=== PATIENT | female | born 1945 | race Caucasian/White ===

== ENCOUNTER 2021-06-10 18:02 | Inpatient (IN) | payer MEDICARE, MEDICAID, SELFPAY ==
[2021-06-10 18:07] VITALS: BP 131/82; PULSE 82; RESP 29; TEMP 36.4; BMI 16.6
--- NOTE | 2021-06-10 18:09 | CTR_ITS ---
PROCEDURE INFORMATION: Exam: CT Head Without Contrast Exam date and time: 06/10/2021 6:09 PM Age: 75 years old Clinical indication: Altered mental status/memory loss; Additional info: AMS TECHNIQUE: Imaging protocol: Computed tomography of the head without contrast. Radiation optimization: All CT scans at this facility use at least one of these dose optimization techniques: automated exposure control; mA and/or kV adjustment per patient size (includes targeted exams where dose is matched to clinical indication); or iterative reconstruction. COMPARISON: No relevant prior studies available. 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 Small posterior left insular chronic infarction is also seen. Mild atrophy and mild white matter chronic microvascular changes are noted. No hemorrhage or evidence of acute infarction. Cerebral ventricles: No ventriculomegaly. Paranasal sinuses: Right sphenoid sinusitis is appreciated. Mastoid air cells: Visualized mastoid air cells are well aerated. Bones/joints: Unremarkable. No acute fracture. Soft tissues: Unremarkable. CT/CT head wo con* [id number] IMPRESSION: No acute intracranial abnormality. Mild sinusitis. Radiation Dose CTDIVOL = (mGy): DLP = 865.02 (mGy-cm)
--- NOTE | 2021-06-10 18:09 | XRR_ITS ---
PROCEDURE INFORMATION: Exam: XR Chest Exam date and time: 06/10/2021 6:09 PM Age: 75 years old Clinical indication: Fever TECHNIQUE: Imaging protocol: XR of the chest. Views: 1 view. COMPARISON: No relevant prior studies available. FINDINGS: Lungs: Emphysematous changes. Lingular left lower lobe atelectasis versus infiltrate. Pleural spaces: Moderate left pleural effusion. Heart/Mediastinum: Cardiomegaly. Bones/joints: Unremarkable. XR/XR chest 1V portable [id number] IMPRESSION: 1. Cardiomegaly. 2. Moderate left pleural effusion. 3. Emphysematous changes. 4. Lingular left lower lobe atelectasis versus infiltrate. Radiation Dose CTDIVOL = (mGy): DLP = (mGy-cm)
--- NOTE | 2021-06-10 18:09 | ECG_ITS ---
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 Measurements Intervals Marshall Rate: 96 P: 63 MI: 138 QRS: 1 QRSD: 78 T: 12 QT: 318 QTc: 403 Interpretive Statements SINUS RHYTHM WITH FREQUENT VENTRICULAR PREMATURE COMPLEXES NONSPECIFIC T-WAVE ABNORMALITY No previous ECG available for comparison Electronically Signed On 06-11-2021 9:59:07 [employer] by Osiris Morales M.D. [email or web address]
--- NOTE | 2021-06-10 18:16 | W.ED.AMS ---
HPI - Altered Mental Status General: Chief Complaint: Urogenital-Female Stated Complaint: POSSIBLE UTI/ SOB Time Seen by Provider: 06/10/21 18:03 Source: patient and EMS Mode of arrival: EMS Limitations: no limitations History of Present Illness: HPI narrative: 75-year-old female here from alf with a fever unsure what her fever was at the alf it is 97.5 states she is had some confusion there is well here she is able answer all my questions she knows the year she knows where she is at she is able to tell me her name states that she has had some chills lately she does get urinary tract infections she denies any cough. Patient here is requiring 4 L of oxygen unsure she is on oxygen at the alf. She denies any pain anywhere denies any vomiting or diarrhea Associated symptoms: Deny depression Review of Systems Const: Reports: fever(s) Eyes: Denies: blurry vision or eye discomfort ENMT: Denies: throat pain or dental pain Card: Denies: chest pain Resp: Denies: dyspnea GI: Denies: abdominal pain, nausea, vomiting or diarrhea : Denies: dysuria Musc: Denies: neck pain or back pain Skin/Breast: Denies: rash Neuro: Denies: headache(s) Psych: Denies: depression Chano/Lymph: Denies: easy bruising All/Imm: Denies: urticaria PFSH ED PFSH: Medical History (Updated 06/10/21 @ 19:46 by Milady Villatoro MD) Generalized anxiety disorder Primary insomnia Physical Exam Const: COMMON NORMALS: no acute distress, patient oriented x3 and healthy appearing HENMT: COMMON NORMALS: normocephalic and atraumatic HEAD & SCALP: normocephalic and atraumatic Eye: COMMON NORMALS: Equal, round and reactive pupils present and EOMs intact bilaterally PUPIL: Yes Equal, round and reactive pupils present Neck/C-Spine: COMMON NORMALS: full ROM and supple Chest: COMMONS NORMALS: normal inspection of the chest and normal palpation of entire chest wall Resp: COMMON NORMALS: normal respiratory effort, No retractions, No use of accessory muscles and clear to auscultation bilaterally AUSCULTATION: clear to auscultation bilaterally Cardio: COMMON NORMALS: regular rate, regular rhythm and No murmurs present (Cardio) RATE: regular rate RHYTHM: regular rhythm GI: COMMON NORMALS: Normal to inspection, nondistended, normoactive bowel sounds present, Soft to palpation, non-tender and no masses PALPATION: Yes Soft to palpation Extremity: COMMON NORMALS: normal to inspection and full ROM Neuro: COMMON NORMALS: patient oriented x3, moves all extremities and no focal motor deficits Psych: COMMON NORMALS: mental status grossly normal, Normal thought process present and cooperative THOUGHT PROCESS: Normal thought process present Skin: COMMON NORMALS: no rashes or lesions noted and no wounds GENERAL SKIN EXAM: no rashes or lesions noted Course Vital Signs: Vital signs: Vital Signs Temperature 97.5 F L 06/10/21 18:07 Pulse Rate 94 06/10/21 20:00 Respiratory Rate 26 H 06/10/21 20:00 Blood Pressure 168/64 06/10/21 20:00 Pulse Oximetry 82 L 06/10/21 20:00 MDM - Altered Mental Status MDM Narrative: Medical decision making narrative: Patient presents here with hypoxia along with a fever she denies cough she is requiring 5 L of oxygen here x-ray shows a pleural effusion with likely pneumonia her Covid here is negative spoke to the hospitalist will start antibiotics and admit at this time. Patient is been stable in the ER. Lab Data: Labs: Lab Results 06/10/21 06/10/21 06/10/21 18:18 18:46 18:46 WBC 17.4 10^3/uL H 10 ^3/uL (4.0-10.0) RBC 3.22 10^6/uL L 10 ^6/uL (4.1-5.3) Hgb 9.9 g/dL L g/dL (11.5-15.3) Hct 29.6 % L % (37.0-47.0) MCV 91.9 fl fl (81-99) MCH 30.7 pg pg (28.0-34.0) MCHC 33.4 g/dL g/dL (30.0-36.0) RDW 12.2 % % (12.1-15.1) Plt Count 457 10^3/cmm H 10 ^3/cmm (130-400) MPV 9.6 fL fL (7.4-10.4) Lymph % (Auto) Not Reportable [place] % (Auto) Not Reportable Lymph # (Auto) Not Reportable [place] # (Auto) Not Reportable Total Counted 100 (0-100) Atypical Lymphs % 3.0 % % (0-5) Absolute Neutrophi ls 14.6 10^3/cmm H 1 0^3/cmm (1.4-6.5) Segmented Neutroph ils 50 % % Abs Segm Neuts (Ma n) 8.7 10/cmm H 10/c mm (1.6-7.1) Band Neutrophils 34.0 % % Abs Band Neuts (Ma n) 5.9 10^3/cmm H 10 ^3/cmm (0.0-1.2) Absolute Lymphocyt es 1.9 10^3/cmm 10^3 /cmm (1.2-3.4) Lymphocytes (Manua l) 8 % % Monocytes (Manual) 5.0 % % Absolute Monocytes 0.9 10^3/cmm H 10 ^3/cmm (0.1-0.6) Eosinophils (Manua l) Not Reportable Basophils (Manual) Not Reportable Platelet Estimate Increased H (Normal) Hypochromasia Trace Specimen Type Arterial Sample Site Radial, right ABG pH 7.54 H (7.35-7.45) ABG pCO2 31.6 mmHg L mmHg (35-45) ABG pO2 42.6 mmHg L mmHg (80.0-100.0) ABG HCO3 27.1 mmol/L H mmo l/L (22-26) ABG Base Excess 4.6 mmol/L H mmol /L (-2.0-2.0) Weston Test Pos Hematocrit 27.8 % L % (37-47) O2 Delivery Device Nc O2 Liters/Min 5.0 % % Prefabricated Houses Trimmer ID [id number] Sodium 130 mmol/L L mmol /L (136-145) Potassium 3.7 mmol/L mmol/L (3.5-5.1) Chloride 93 mmol/L L mmol/ L (98-107) Carbon Dioxide 24 mmol/L mmol/L (22-29) Anion Gap 16.7 (5-19) BUN 25 mg/dL H mg/dL (8-23) Creatinine 0.5 mg/dL mg/dL (0.5-0.9) GFR Calculation Not Reportable Glucose 108 mg/dL mg/dL (65-115) Calculated Osmolal ity 275 mOsm/kg L mOs m/kg (285-295) Calcium 8.4 mg/dL L mg/dL (8.5-10.5) Total Bilirubin 0.3 mg/dL mg/dL (0.15-1.2) AST 23 U/L U/L (0-32) ALT 13 U/L U/L (0-33) Alkaline Phosphata se 150 IU/L H IU/L (35-105) Total Protein 6.9 g/dL g/dL (6.6-8.7) Albumin 3.1 g/dL L g/dL (3.5-5.2) Globulin 3.8 g/dL g/dL (1.3-4.6) Influenza Type A A g Influenza Type B A g SARS-CoV-2 Ag (Rap id) 06/10/21 06/10/21 19:02 19:09 WBC RBC Hgb Hct MCV MCH MCHC RDW Plt Count MPV Lymph % (Auto) [place] % (Auto) Lymph # (Auto) [place] # (Auto) Total Counted Atypical Lymphs % Absolute Neutrophi ls Segmented Neutroph ils Abs Segm Neuts (Ma n) Band Neutrophils Abs Band Neuts (Ma n) Absolute Lymphocyt es Lymphocytes (Manua l) Monocytes (Manual) Absolute Monocytes Eosinophils (Manua l) Basophils (Manual) Platelet Estimate Hypochromasia Specimen Type Sample Site ABG pH ABG pCO2 ABG pO2 ABG HCO3 ABG Base Excess Weston Test Hematocrit O2 Delivery Device O2 Liters/Min Prefabricated Houses Trimmer ID Sodium Potassium Chloride Carbon Dioxide Anion Gap BUN Creatinine GFR Calculation Glucose Calculated Osmolal ity Calcium Total Bilirubin AST ALT Alkaline Phosphata se Total Protein Albumin Globulin Influenza Type A A g Negative (Negative) Influenza Type B A g Negative (Negative) SARS-CoV-2 Ag (Rap id) Negative (Negative) Imaging Data^: CT Head: Attestation: I personally reviewed and interpreted this imaging study as follows: My impression: [address] [address] [address] Scan Report Signed Patient: Radha Moreira Unit #: [id number] : 1945 Age/Sex: 75 / F ADM Date: 06/10/21 Loc: ER Room/Bed: Attending Dr: Ordering Provider/Ordering MD: Milady Villatoro MD Date of Service: 06/10/21 Procedure(s): CT head wo con* [id number] Accession Number(s): [id number] Report Number: [id number] PROCEDURE INFORMATION: Exam: CT Head Without Contrast Exam date and time: 06/10/2021 6:09 PM Age: 75 years old Clinical indication: Altered mental status/memory loss; Additional info: AMS TECHNIQUE: Imaging protocol: Computed tomography of the head without contrast. Radiation optimization: All CT scans at this facility use at least one of these dose optimization techniques: automated exposure control; mA and/or kV adjustment per patient size (includes targeted exams where dose is matched to clinical indication); or iterative reconstruction. COMPARISON: No relevant prior studies available. 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 Small posterior left insular chronic infarction is also seen. Mild atrophy and mild white matter chronic microvascular changes are noted. No hemorrhage or evidence of acute infarction. Cerebral ventricles: No ventriculomegaly. Paranasal sinuses: Right sphenoid sinusitis is appreciated. Mastoid air cells: Visualized mastoid air cells are well aerated. Bones/joints: Unremarkable. No acute fracture. Soft tissues: Unremarkable. CT/CT head wo con* [id number] IMPRESSION: No acute intracranial abnormality. Mild sinusitis. Radiation Dose CTDIVOL = (mGy): DLP = 865.02 (mGy-cm) Dictated By: Tank Chavez MD Signed By: Tank Chavez MD Signed Date/Time: 06/10/211931 DD/ 08 CXR: Attestation: I personally reviewed and interpreted this imaging study as follows: Radiologist's impression: [address] [address] XRay Report Signed Patient: Radha Moreira Unit #: [id number] : 1945 Age/Sex: 75 / F ADM Date: 06/10/21 Loc: ER Room/Bed: Attending Dr: Ordering Provider/Ordering MD: Milady Villatoro MD Date of Service: 11/30/21 Procedure(s): XR chest 1V portable [id number] Accession Number(s): [id number] Report Number: [id number] PROCEDURE INFORMATION: Exam: XR Chest Exam date and time: 06/10/2021 6:09 PM Age: 75 years old Clinical indication: Fever TECHNIQUE: Imaging protocol: XR of the chest. Views: 1 view. COMPARISON: No relevant prior studies available. FINDINGS: Lungs: Emphysematous changes. Lingular left lower lobe atelectasis versus infiltrate. Pleural spaces: Moderate left pleural effusion. Heart/Mediastinum: Cardiomegaly. Bones/joints: Unremarkable. XR/XR chest 1V portable [id number] IMPRESSION: 1. Cardiomegaly. 2. Moderate left pleural effusion. 3. Emphysematous changes. 4. Lingular left lower lobe atelectasis versus infiltrate. Radiation Dose CTDIVOL = (mGy): DLP = (mGy-cm) Dictated By: Jan Connolly MD Signed By: Jan Connolly MD Signed Date/Time: 06/10/21 184 DD/ 08 Discharge Plan Discharge Patient Disposition: Admitted As Inpatient Clinical Impression: Pleural effusion Pneumonia Qualifiers: Pneumonia type: due to unspecified organism Laterality: left Lung location: lower lobe of lung Qualified Code(s): J18.9 - Pneumonia, unspecified organism Condition: Stable Coding Level of Care Code ED Sweater Operator for g Fwd Exam Comprehensive
[2021-06-10 19:07] LABS: Hematocrit 29.6 % (37.0-47.0); Hemoglobin 9.9 g/dL (11.5-15.3); Mean Corpuscular HGB Conc 33.4 g/dL (30.0-36.0); Mean Corpuscular Hemoglobin 30.7 pg (28.0-34.0); Mean Corpuscular Volume 91.9 fl (81-99); Mean Platelet Volume 9.6 fL (7.4-10.4); Platelet Count 457 10^3/cmm (130-400); Red Blood Count 3.22 10^6/uL (4.1-5.3); Red Cell Distribution Width 12.2 % (12.1-15.1); White Blood Count 17.4 10^3/uL (4.0-10.0)
[2021-06-10 19:30] LABS: Alanine Aminotransferase 13 U/L (0-33); Albumin Level 3.1 g/dL (3.5-5.2); Alkaline Phosphatase 150 IU/L (35-105); Anion Gap 16.7 (5-19); Aspartate Amino Transferase 23 U/L (0-32); Blood Urea Nitrogen 25 mg/dL (8-23); Calcium 8.4 mg/dL (8.5-10.5); Carbon Dioxide 24 mmol/L (22-29); Chloride 93 mmol/L (98-107); Globulin 3.8 g/dL (1.3-4.6); Glucose 108 mg/dL (65-115); Osmolality Calculated 275 mOsm/kg (285-295); Potassium 3.7 mmol/L (3.5-5.1); Sodium 130 mmol/L (136-145); Total Bilirubin 0.3 mg/dL (0.15-1.2); Total Protein 6.9 g/dL (6.6-8.7)
[2021-06-10 19:32] LABS: Influenza A by IFA Negative (Negative); Influenza B by IFA Negative (Negative)
[2021-06-10 19:32] LABS: SARS Covid-2 Antigen Negative (Negative)
[2021-06-10 19:33] LABS: Absolute Segmented Neutrophil 8.7 10/cmm (1.6-7.1); Segmented Neutrophils 50 %; Total Cells Counted 100 (0-100)
[2021-06-10 19:34] LABS: Absolute Neutrophil 14.6 10^3/cmm (1.4-6.5); Band Neutrophils Absolute 5.9 10^3/cmm (0.0-1.2); Lymphocytes 8 %; Lymphocytes Absolute 1.9 10^3/cmm (1.2-3.4); Monocytes Absolute 0.9 10^3/cmm (0.1-0.6); Platelet Estimate Increased (Normal)
[2021-06-10 19:35] LABS: Hypochromasia Trace
[2021-06-10 20:00] VITALS: BP 168/64; PULSE 94; RESP 26; O2SAT 82
[2021-06-10 20:06] LABS: ABG PCO2 31.6 mmHg (35-45); ABG PH Result 7.54 (7.35-7.45); Arterial Blood Gas Hematocrit 27.8 % (37-47); Base Excess ABG 4.6 mmol/L (-2.0-2.0); Blood Gas Allen Test Pos; Blood Gas Sample Site Radial, right; Blood Gas Sample Type Arterial; HCO3 ABG 27.1 mmol/L (22-26); Oxygen Device NC; PO2 ABG 42.6 mmHg (80.0-100.0)
[2021-06-10] MEDS: cefTRIAXone 1,000 MG in sodium chloride 0.9% (plus) 50 ML 100 MG IV (20:15)
[2021-06-10 20:22] LABS: NT Pro B Type Natriuretic Pept 4259 pg/mL (0-450)
[2021-06-10 20:38] LABS: Lactate (Lactic Acid level) 1.4 mmol/L (0.5-2.2)
[2021-06-10] MEDS: azithromycin 500 MG in sodium chloride 0.9% 250 ML 250 MG IV (20:51)
[2021-06-10 20:55] VITALS: BP 142/53; PULSE 88; RESP 26; O2SAT 81
[2021-06-10 23:15] LABS: Add Urine Microscopic? YES; Bilirubin Urine Neg (Negative); Blood Urine 3+ (Negative); Glucose Urine UA Norm (Normal); Ketones Urine 1+ (Negative); Leukocyte Esterase Urine 2+ (Negative); Nitrate Urine Positive (Negative); Protein Urine 2+ (Negative); Urine Appearance Cloudy (CLEAR); Urine Color Yellow (Yellow); Urobilinogen Urine Neg (Negative); pH Urine 6 (5-7)
[2021-06-10 23:19] LABS: Amorphous Sediment Urine 4+ /hpf; Bacteria Urine 3+ /hpf; RBC Urine 15-25 /hpf (0-2); Squamous Epithelial Cell Urine RARE /hpf (0-5); WBC Urine 15-25 /hpf (0-5)
[2021-06-10 23:20] LABS: Add Urine Culture? Yes
[2021-06-10 23:50] VITALS: BP 144/66; PULSE 100; RESP 16; O2SAT 88
[2021-06-11] VITALS (8 sets, daily range): BP systolic 146–165; BP diastolic 58–74; PULSE 88–101; RESP 16–24; TEMP 36.8–38.8; O2SAT 90–95; BMI 16.6
[2021-06-11] MEDS: FUROsemide 10 mg/mL SDV 2mL 20 MG IVP (02:24)
--- NOTE | 2021-06-11 05:11 | PM.HP ---
Providers/Chief Complaint Admitting Physician: Lashay Mora MD Primary Care Provider: Deborah Jung Chief Complaint: POSSIBLE UTI/ SOB History of Present Illness Radha Moreira is a 75 year old female with a past medical history of atrial fibrillation, on anticoagulation chronically with Xarelto, hypertension, hyperlipidemia, correction resident since hip fracture repair at [facility] few months ago. Currently sent over from the correction due to complaints of fever over the last 2 to 3 days, new oxygen requirement concern for pneumonia and UTI. Patient reports dysuria, frequent micturition. She denies any fever to me at this present time states she is unaware if she had 1. Complains of minimal cough and expectoration. Denies any past history of CHF. Denies chest pain or palpitations. Currently on 4 L/min supplemental O2 which patient states is new since the last 48 hours. Chest x-ray shows left lower lobe infiltrate with left-sided pleural effusion. Vaccinated for COVID-19, received second dose monitor 17 September 2020. Rapid Covid ag was negative at the ER and also recently at the correction. Influenza antigen a and B-. Elevated BNP at 4200. Review of Systems General: Reports: 10 or more systems reviewed and unremarkable except in HPI and below Const: Denies: fever(s), chills or body aches Eyes: Denies: change in vision, blurry vision or photophobia ENMT: Reports: hoarseness; Denies: throat pain, enlarged tonsils, odynophagia or nasal congestion Card: Denies: chest pain, palpitations, irregular heart rhythm, edema, swelling of feet/ankles, lightheadedness, pre-syncope, dyspnea on exertion or orthopnea Resp: Denies: dyspnea, productive cough, non-productive cough, wheezing, stridor, pain on inspiration, change in phlegm color, hemoptysis or chest congestion GI: Denies: abdominal pain, nausea, vomiting, hematemesis, coffee ground emesis, dysphagia, heartburn, diarrhea, constipation, GI cramping, change in stool character, hematochezia or melena : Denies: flank pain, difficulty voiding, dysuria, urinary frequency, urinary urgency, urinary hesitancy or hematuria Musc: Denies: neck pain, back pain, extremity pain, joint swelling, joint warmth or deformity Neuro: Denies: headache(s), numbness in extremities, weakness in extremities, sensory changes, difficulty walking, frequent falls, dizziness, vertigo, behavioral changes, Slurred speech present or seizure-like activity Psych: Denies: anxiety, depression, suicidal ideation or homicidal ideation Endo: Denies: polyuria, polydipsia, tired all the time, cold intolerance or hot flashes Chano/Lymph: Denies: easy bruising or easy bleeding Medications/Allergies Home Medications Medication Instructions Recorded Confirmed Last Taken Type mirtazapine 7.5 mg tablet 7.5 mg PO .at bedtime #30 tab 10/17/19 06/11/21 06/09/21 Rx lorazepam 0.5 mg tablet 0.5 mg PO .at bedtime PRN #30 tab 10/18/19 10/18/19 Unknown Rx zaleplon 5 mg capsule 5 mg PO .COMPLEX #30 cap 10/18/19 10/18/19 Unknown Rx zolpidem 10 mg tablet 10 mg PO .at bedtime PRN #30 tab 10/18/19 10/18/19 Unknown Rx Colace 100 mg PO BID 06/11/21 06/11/21 06/10/21 History albuterol sulfate PRN 06/11/21 06/11/21 Unknown History amlodipine PO DAILY 06/11/21 06/10/21 History atorvastatin 40 mg PO QPM 06/11/21 06/11/21 06/09/21 History escitalopram oxalate [Lexapro] 5 mg PO DAILY 06/11/21 06/11/21 06/10/21 History famotidine mg PO BID 06/11/21 06/10/21 History hydrochlorothiazide 12.5 mg PO DAILY 06/11/21 06/11/21 06/10/21 History magnesium hydroxide [Milk of 400 mg PO DAILY 06/11/21 06/11/21 06/10/21 History Magnesia] melatonin 5 mg PO DAILY 06/11/21 06/11/21 06/09/21 History metoprolol tartrate 06/11/21 06/10/21 History multivitamin,tx-minerals [Thera M] 1 tab PO DAILY 06/11/21 06/11/21 06/10/21 History polyethylene glycol 3350 [Miralax] 17 g PO DAILY 06/11/21 06/11/21 06/10/21 History potassium chloride 06/11/21 06/10/21 History rivaroxaban [Xarelto] mg 06/11/21 06/10/21 History senna 8.6 mg PO DAILY 06/11/21 06/11/21 Unknown History Allergies Allergy/AdvReac Type Severity Reaction Status Date / Time Penicillins Allergy Severe Breaks out Verified 07/18/19 11:42 and swells up codeine Allergy ALGY-Anaphy Verified 06/10/21 18:07 laxis PFSH Acute PFSH: Medical History (Updated 06/11/21 @ 05:26 by Lashay Mora MD) Atrial fibrillation Chronic anticoagulation Generalized anxiety disorder Hypertension Primary insomnia Vitals/I&O/Wt Last Vital Signs Temp 98.3 F 06/11/21 01:24 Pulse 101 H 06/11/21 01:24 Resp 24 H 06/11/21 01:24 BP 146/58 06/11/21 01:24 Pulse Ox 92 06/11/21 03:35 06/10/21 06/10/21 06/11/21 14:59 22:59 06:59 Intake Total 300 / 300 Balance 300 / 300 Weight last 48 hrs Weight 35.925 kg Weight 34.927 kg Weight 34.927 kg Physical Exam Narrative: EXAM NARRATIVE: General: No acute distress, AO x3, frail appearing cachectic lady, BMI 17 HEENT: PERRLA, pupils bilaterally equal and reactive, pallors not present Chest: Reduced air entry left lower lobe CVS: S1-S2 regular, no murmurs, no tachycardia, no gallops, no rubs Abdomen: Soft, nontender, no organomegaly, bowel sounds present Neuro: No focal deficits, no facial deformity, AO x3, power 5/5 in all limbs Extremities: No lower extremity edema Data : 06/10/21 18:46 06/10/21 18:46 Micro: Microbiology 06/10/21 22:35 Blood Culture - Preliminary Blood SPECIMEN COLLECTED 06/10/21 22:30 Blood Culture - Preliminary Blood SPECIMEN COLLECTED A&P Assessment and plan (1) Pneumonia: Patient presenting with chief complaints of fever, dyspnea, leukocytosis, new oxygen requirement with chest x-ray with left lower lobe pneumonia and left pleural effusion. Start antibiotic treatment for community-acquired pneumonia with ceftriaxone and azithromycin. Supplemental O2 to keep saturation greater than 92%. Bacterial antigen panel, Covid PCR, sputum Gram stain and culture, MRSA PCR Low suspicion for PE given patient is chronically on Xarelto for known atrial fibrillation. Holding Xarelto for now as patient may require thoracentesis during course of admission. Trial of Lasix 20 mg IV now, using lower doses cautiously as patient is Lasix na?ve. Monitor electrolytes and kidney function closely. Titrate dosing based on urine output. Status: Acute Qualifiers: Laterality: left Lung location: lower lobe of lung Pneumonia type: due to unspecified organism Qualified Code(s): J18.9 - Pneumonia, unspecified organism (2) Pleural effusion: Status: Acute Additional A&P Information A. fib: Currently rate controlled. Continue metoprolol. Home medication list needs to be verified. holding Xarelto as above. UTI: Currently empirically covered as above with antibiotics. Await urine culture. DNR/DNI per correction paperwork. Attestations Medical Necessity Statement*: Anticipate greater than 2 midnight admission for above defined care Coding Level of Care Code Acute Retail Sales Professional for Lois Carr Diagnoses Pneumonia J18.9 Laterality: left Lung location: lower lobe of lung Pneumonia type: due to unspecified organism Pleural effusion J90
--- NOTE | 2021-06-11 05:29 | USCV_ITS ---
Radha Moreira Age: 75 Gender: F : 1945 Exam Date: 06/11/2021 06:53 Ordering Phys: Lashay Mora MD Technologist: Nohelia Cabrera Exam Location: [facility] – [place] Indication: Congestive heart failure BP: 146 / 58 HR: 117 Rhythm: Atrial fibrillation Technical Quality: Adequate MEASUREMENTS (Male / Female) Normal Values 2D ECHO LV Diastolic Diameter PLAX 4.7 cm 4.2 - 5.9 / 3.9 - 5.3 cm LV Systolic Diameter PLAX 3.5 cm IVS Diastolic Thickness 1.3 cm 0.6 - 1.0 / 0.6 - 0.9 cm IVS Systolic Thickness 1.5 cm LVPW Diastolic Thickness 1.3 cm 0.6 - 1.0 / 0.6 - 0.9 cm LVPW Systolic Thickness 1.9 cm LVOT Diameter 2.0 cm LV Ejection Fraction 2D Teich 51.5 % LV Ejection Fraction MOD 2C 52.9 % LV Ejection Fraction 2C AL 54.4 % LA Diameter 3.2 cm LA Width 3.3 cm LA Height 3.5 cm RA Width 2.6 cm RA Height 2.5 cm Aorta at Sinotubular Diameter 2.1 cm M-MODE Aortic Annulus Diameter 2.4 cm LA Ao Ratio MM 1.2 MV E Point Septal Separation 1.5 cm DOPPLER AV Peak Velocity 173.0 cm/s LVOT Peak Velocity 127.0 cm/s AV Area Cont Eq vti 1.9 cm squared AV Area Cont Eq pk 2.3 cm squared MV Area PHT 5.8 cm squared MV E' Velocity 104.0 cm/s TR Peak Velocity 262.9 cm/s TR Peak Gradient 27.6 mmHg TR Mean Velocity 239.5 cm/s TR Mean Gradient 24.6 mmHg TR Velocity Time Integral 74.4 cm PV Peak Velocity 80.0 cm/s RV Acceleration Time 0.1 s RV Ejection Time 0.3 s RV AcT/ET 0.4 FINDINGS Left Ventricle Normal left ventricular size, systolic function and wall thickness, with no regional wall motion abnormalities. Left ventricular ejection fraction is estimated at 55-60 %. Grade I diastolic dysfunction (abnormal relaxation filling pattern), normal to mildly elevated filling pressures. Right Ventricle Normal right ventricular size and systolic function. Right ventricular systolic pressure 42 mmHg. Right Atrium Normal right atrial size. Left Atrium Mildly increased left atrial size. Mitral Valve Structurally normal mitral valve. No mitral valve stenosis. Trace mitral valve regurgitation. Aortic Valve Structurally normal trileaflet aortic valve. No aortic valve stenosis. Moderate aortic valve regurgitation. Tricuspid Valve Structurally normal tricuspid valve. No tricuspid valve stenosis. Mild tricuspid valve regurgitation. Pulmonic Valve Pulmonic valve not well visualized. No pulmonary valve stenosis. Trace pulmonary valve regurgitation. Pericardium No pericardial effusion. Aorta Normal size aortic root and proximal ascending aorta. CONCLUSIONS 1. Normal left ventricular size, systolic function and wall thickness, with no regional wall motion abnormalities. Left ventricular ejection fraction is estimated at 55-60 %. Grade I diastolic dysfunction (abnormal relaxation filling pattern), normal to mildly elevated filling pressures. 2. Normal right ventricular size and systolic function. 3. Moderate aortic valve regurgitation. 4. Mildly increased left atrial size. 5. No prior similar studies to compare. Osiris Morales MD (Electronically Signed) Final Date: 11 June 2021 11:58 S
[2021-06-11] MEDS: metoprolol succinate ER (24 HR) 50 mg Tablet PO ×2 (06:41→09:03)
[2021-06-11] MEDS: escitalopram 10 mg Tablet 5 MG PO (09:03)
[2021-06-11] MEDS: pantoprazole DR 40 mg Tablet PO (09:03)
[2021-06-11] MEDS: docusate sodium 100 mg Capsule PO ×2 (09:03→18:14)
[2021-06-11] MEDS: hydroCHLOROthiazide 25 mg Tablet 12.5 MG PO (09:04)
[2021-06-11 09:39] LABS: D Dimer 2.42 ug/mIFEU (0-0.59)
--- NOTE | 2021-06-11 09:53 | PC.PHAR ---
pt is from [facility] medications entered are meds that were on the pts mar
[2021-06-11] MEDS: acetaminophen 325 mg Tablet 650 MG PO (11:02)
[2021-06-11 14:17] LABS: Coronavirus Test Green County Not Detected
[2021-06-11] MEDS: atorvastatin 40 mg Tablet PO (18:14)
[2021-06-11] MEDS: azithromycin 250 mg Tablet 500 MG PO (20:03)
[2021-06-11] MEDS: mirtazapine 15 mg Tablet 7.5 MG PO (20:03)
[2021-06-11] MEDS: cefTRIAXone 1,000 MG in sodium chloride 0.9% (plus) 50 ML 100 MG IV (20:03)
[2021-06-12] VITALS (7 sets, daily range): BP systolic 146–169; BP diastolic 63–74; PULSE 89–115; RESP 16–24; TEMP 36.7–37.2; O2SAT 90–95
[2021-06-12 06:46] LABS: Alanine Aminotransferase 11 U/L (0-33); Albumin Level 3.2 g/dL (3.5-5.2); Alkaline Phosphatase 125 IU/L (35-105); Anion Gap 21.5 (5-19); Aspartate Amino Transferase 22 U/L (0-32); Blood Urea Nitrogen 25 mg/dL (8-23); Calcium 8.7 mg/dL (8.5-10.5); Carbon Dioxide 21 mmol/L (22-29); Chloride 96 mmol/L (98-107); Globulin 3.9 g/dL (1.3-4.6); Glucose 135 mg/dL (65-115); Osmolality Calculated 288 mOsm/kg (285-295); Sodium 136 mmol/L (136-145); Total Bilirubin 0.2 mg/dL (0.15-1.2); Total Protein 7.1 g/dL (6.6-8.7)
[2021-06-12 07:04] LABS: Potassium 2.5 mmol/L (3.5-5.1)
--- NOTE | 2021-06-12 07:31 | CT_ITS ---
WS: [id number] CTA OF THE CHEST WITH PULMONARY EMBOLISM PROTOCOL TECHNIQUE: High-resolution contrast enhanced CTA of the chest with coronal and sagittal reformatted i rafitas with pulmonary embolism protocol. MIP images are also reviewed. CLINICAL INFORMATION: HYPOXIA COMPARISON: None. DLP: 335.[address] scans at [facility] use at least one of these dose optimization techniques: automated e xposure control; mA and/or kV adjustment per patient size (includes targeted exams where dose is matc hed to clinical indication); or iterative reconstruction. FINDINGS: Proximal main pulmonary arteries are normal. Normal segmental and subsegmental pulmonary arteries. Di stal vessels not well evaluated due to artifact. No evidence of pulmonary embolus. Normal caliber thoracic aorta. No mediastinal or hilar lymphadenopathy. Patchy infiltrates with parti al airspace consolidation left lower lobe and left upper lobe along the fissure. Patchy infiltrates e xtending into the left upper lobe. Bronchovascular thickening along the left hilum with fluid and sec retions in the left mainstem bronchus. Soft tissue thickening along the left hilum. Air bronchograms in the left lower lobe. Right lung is well aerated.Moderate chronic emphysematous changes. A few patc hy nodular opacities in the right upper lobe. Mild thoracic kyphosis. Compression fractures with anterior wedging in the mid and lower thoracic spi ne. This has a chronic appearance at T7 and L1. Cardiomegaly. CT/CT angio chest PE protcl [id number] IMPRESSION: 1. No evidence of pulmonary embolus. Distalmost vessels not well visualized du e to artifact. 2. Airspace infiltrates with partial consolidation left lower lobe and left up per lobe. Recommend correlation for pneumonia. 3. Secretions with bronchovascular and soft tissue thickening along the left h ilum and mainstem bronchus. Secretions with luminal narrowing left mainstem bro nchus. This is likely infectious or inflammatory but should be followed up to r esolution to exclude underlying lesion 4. A few patchy nodular opacities in right upper lobe. 5. Chronic compression fractures at T7 and L1.
[2021-06-12] MEDS: iohexol 350 mg/mL 100 mL Btl IV (08:07)
[2021-06-12] MEDS: escitalopram 10 mg Tablet 5 MG PO (09:26)
[2021-06-12] MEDS: pantoprazole DR 40 mg Tablet PO (09:26)
[2021-06-12] MEDS: metoprolol succinate ER (24 HR) 50 mg Tablet PO (09:26)
[2021-06-12] MEDS: potassium chloride oral liq 20 mEq/15 mL UDC 40 MEQ PO (09:26)
[2021-06-12] MEDS: docusate sodium 100 mg Capsule PO (09:26)
[2021-06-12 09:48] LABS: Basophils # 0.1 10^3/uL (0.0-0.1); Basophils % 0.5 %; Eosinophils % 0.1 %; Hematocrit 24.7 % (37.0-47.0); Hemoglobin 8.3 g/dL (11.5-15.3); Lymphocytes # 0.8 10^3/uL (0.8-4.8); Lymphocytes % 3.5 %; Mean Corpuscular HGB Conc 33.6 g/dL (30.0-36.0); Mean Corpuscular Volume 92.2 fl (81-99); Mean Platelet Volume 9.7 fL (7.4-10.4); Monocytes % 4.3 %; Neutrophils # 20.23 10^3/uL (1.8-7.7); Neutrophils % 90.4 %; Nucleated Red Blood Cells % 0 %; Platelet Count 426 10^3/cmm (130-400); Red Blood Count 2.68 10^6/uL (4.1-5.3); Red Cell Distribution Width 12.4 % (12.1-15.1); White Blood Count 22.4 10^3/uL (4.0-10.0)
[2021-06-12] MEDS: sodium chloride 0.9% 500 ML 999 ML IV (09:49)
[2021-06-12] MEDS: acetaminophen 325 mg Tablet 650 MG PO (10:25)
[2021-06-12] MEDS: lidocaine 1% 5 ML in potassium chloride premix 100 ML 25 ML IV (12:19)
--- NOTE | 2021-06-12 12:29 | P.PN_ITS ---
Subjective Subjective: Interval history: Worsening leukocytosis however afebrile since last 24 hours, currently requiring 3 L of oxygen, oxygen requirement did improve with change in positioning, Covid PCR negative Requested CTA which ruled out PE, consistent with pneumonia Patient looks dehydrated She had 3 bowel movement last night, requested C. difficile panel Potassium repleted Vitals/I&O/Wt Last Vital Signs Temp 98.8 F 06/12/21 11:39 Pulse 89 06/12/21 11:39 Resp 16 06/12/21 11:39 BP 161/64 06/12/21 11:39 Pulse Ox 95 06/12/21 11:39 06/11/21 06/12/21 06/12/21 22:59 06:59 14:59 Intake Total 170 / 290 80 / 80 Balance 170 / 290 80 / 80 Weight last 48 hrs Weight 35.017 kg Weight 35.925 kg Weight 34.927 kg Weight 34.927 kg Physical Exam Narrative: EXAM NARRATIVE: Dehydrated, malnourished elderly female Currently doing well on 2 L nasal cannula Bilateral breath sound with rhonchi and in the base and upper zones Dry cracked lips Able to answer simple questions She keeps her legs attached to her stomach Clinically dehydrated Neuro exam is limited She makes eye contact tries to answer my questions with 2-3 words I do not see any focal deficit EOMI, PERRLA Cognitive impairment Data : 06/12/21 08:45 06/12/21 05:52 Micro: Microbiology 06/10/21 23:00 Urine Culture - Preliminary Urine,Clean Catch 06/10/21 22:35 Blood Culture - Preliminary Blood NEGATIVE TO DATE 06/10/21 22:30 Blood Culture - Preliminary Blood NEGATIVE TO DATE 06/11/21 06:20 MRSA Culture - Final Nose A&P Assessment and plan (1) Pneumonia: Status: Acute Qualifiers: Laterality: left Lung location: lower lobe of lung Pneumonia type: due to unspecified organism Qualified Code(s): J18.9 - Pneumonia, unspecified organism (2) Pleural effusion: Status: Acute (3) Generalized anxiety disorder: Status: Acute (4) Primary insomnia: Status: Acute (5) Diarrhea: Status: Acute (6) Acute respiratory failure with hypoxia: Status: Acute Additional A&P Information Acute hypoxia related to pneumonia Most likely she is aspirating Currently on dysphagia diet No active focal deficit no signs of stroke Afebrile Worsening of leukocytosis Requiring 3 L of oxygen Covid PCR is negative CTA ruled out pulmonary embolism, continue ceftriaxone and azithromycin She does have MRSA PCR positive, does not have typical MRSA pneumonia features, would cover with antibiotic doxycycline Bilateral pleural effusion Patient does have clinical signs of dehydration Dry cracked lips Judicious use of diuretics She has poor p.o. intake Hypoactive delirium I would like to try Ritalin for next 48 hours and see if she would start eating and her energy will improve watch for hypertension or any other side effects such as palpitations Abnormal UA with minimal bacterial load Currently she is on ceftriaxone DNR/DNI Dysphagia diet She is from [facility] Hypokalemia: Repleted Rule out C. difficile for 3 episodes of loose stools last night Plan to discharge her tomorrow Attestations Medical Necessity Statement*: Discharge back to [facility] tomorrow if clinically stable Time Spent in Patient Care: 16 - 35 minutes Coding Level of Care Code Acute Rn Float for [facility] Fwd Diagnoses Pneumonia J18.9 Laterality: left Lung location: lower lobe of lung Pneumonia type: due to unspecified organism Pleural effusion J90 Generalized anxiety disorder F41.1 Primary insomnia F51.01 Diarrhea R19.7 Acute respiratory failure with hypoxia J96.01
[2021-06-12] MEDS: methylphenidate 10 mg Tablet PO ×2 (13:03→17:14)
[2021-06-12] MEDS: doxycycline 100 mg Tablet PO (17:14)
[2021-06-12] MEDS: atorvastatin 40 mg Tablet PO (17:15)
[2021-06-12] MEDS: azithromycin 250 mg Tablet 500 MG PO (20:04)
[2021-06-12] MEDS: mirtazapine 15 mg Tablet 7.5 MG PO (20:04)
[2021-06-12] MEDS: cefTRIAXone 1,000 MG in sodium chloride 0.9% (plus) 50 ML 100 MG IV (20:05)
[2021-06-13] VITALS (8 sets, daily range): BP systolic 115–170; BP diastolic 67–82; PULSE 57–132; RESP 23–46; TEMP 36.9–37.6; O2SAT 90–95
[2021-06-13 05:48] LABS: Basophils # 0.1 10^3/uL (0.0-0.1); Basophils % 0.4 %; Hematocrit 27.4 % (37.0-47.0); Hemoglobin 8.9 g/dL (11.5-15.3); Lymphocytes # 1.6 10^3/uL (0.8-4.8); Lymphocytes % 5.5 %; Mean Corpuscular HGB Conc 32.5 g/dL (30.0-36.0); Mean Corpuscular Hemoglobin 30.3 pg (28.0-34.0); Mean Corpuscular Volume 93.2 fl (81-99); Mean Platelet Volume 9.6 fL (7.4-10.4); Monocytes # 1.6 10^3/uL (0.2-0.9); Monocytes % 5.4 %; Neutrophils # 25.23 10^3/uL (1.8-7.7); Neutrophils % 86.5 %; Nucleated Red Blood Cells % 0 %; Platelet Count 608 10^3/cmm (130-400); Red Blood Count 2.94 10^6/uL (4.1-5.3); Red Cell Distribution Width 12.6 % (12.1-15.1); White Blood Count 29.2 10^3/uL (4.0-10.0)
[2021-06-13 06:14] LABS: Anion Gap 21.7 (5-19); Blood Urea Nitrogen 29 mg/dL (8-23); Calcium 8.9 mg/dL (8.5-10.5); Carbon Dioxide 20 mmol/L (22-29); Chloride 105 mmol/L (98-107); Glucose 165 mg/dL (65-115); Osmolality Calculated 306 mOsm/kg (285-295); Potassium 3.7 mmol/L (3.5-5.1); Procalcitonin 0.72 ng/mL (0-0.5); Sodium 143 mmol/L (136-145)
--- NOTE | 2021-06-13 08:30 | CT_ITS ---
WS: [id number] CT HEAD TECHNIQUE: Noncontrast CT of the head obtained from the skullbase to the vertex. CLINICAL INFORMATION: possible stroke COMPARISON: June 10 2021 DLP: [id number] scans at [facility] use at least one of these dose optimization techniques: automated e xposure control; mA and/or kV adjustment per patient size (includes targeted exams where dose is matc hed to clinical indication); or iterative reconstruction. FINDINGS: No evidence of intracranial hemorrhage or mass effect. Ventricular system and basal cisterns are banks nt. Moderate small vessel changes with moderate parenchymal volume loss. 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 Chronic infarct left cerebellum. No extra-axial fluid collection s. No evidence of mass or mass effect. Otherwise normal fiore-white differentiation. Paranasal sinuses and mastoid air cells are well aerated. .Normal visualized soft tissues. CT/CT head wo con* [id number] IMPRESSION: 1. No evidence of intracranial hemorrhage or mass effect. 2. Moderate small vessel changes with moderate parenchymal volume loss. 3. 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 4. Chronic infarcts in the left cerebellum. 5. No acute intracranial findings. No significant changes since June 10 021 Notified Elena Jorgensen MD at 06/13/2021 8:43 AM.
[2021-06-13 08:44] LABS: Glucose Point of Care 163 mg/dL (70-110)
[2021-06-13] MEDS: sodium chloride 0.9% 1,000 ML 75 ML IV (08:46)
[2021-06-13] MEDS: aztreonam 2,000 MG in sodium chloride 0.9% (plus) 100 ML 200 MG IV ×2 (08:47→21:17)
--- NOTE | 2021-06-13 09:06 | PC.NURSE ---
UPON ASSESSMENT THIS MORNING PT NOTED TO BE TACHYCARDIA WELL TACHYPNEA. B/P IS SLIGHTLY ELEVATED. BLOOD SUGAR WAS 163. PT EYES WERE OPEN BUT SHE WOULD NOT RESPOND TO ME. I COULDNT GET HER TO FOLLOW COMMANDS NOR TALK TO ME. THE PHYSICIAN WAS NOTIFIED. A STAT CT OF THE HEAD WAS ORDERED. PT TAKEN TO CT SCAN. PT TOLERATED THIS WELL. PENDING RESULTS AT THE TIME. PHYSICIAN NOTIFIED THAT PT IS BACK IN ROOM. PTS HEART RATE HAS SETTLED DOWN A LITTLE, RUNNING 120S. STILL TACHYPNEA. PENDING ORDERS. CONTINUING TO MONITOR PT.
[2021-06-13 10:18] LABS: ABG PCO2 30.9 mmHg (35-45); ABG PH Result 7.53 (7.35-7.45); Arterial Blood Gas Hematocrit 28.3 % (37-47); Base Excess ABG 3.1 mmol/L (-2.0-2.0); Blood Gas Allen Test Pos; Blood Gas Operator Identificat BROMA; Blood Gas Sample Site Radial, right; Blood Gas Sample Type Arterial; HCO3 ABG 25.7 mmol/L (22-26); Oxygen Device OXY MASK; PO2 ABG 64.2 mmHg (80.0-100.0)
--- NOTE | 2021-06-13 10:29 | XR_ITS ---
WS: [id number] Portable AP upright chest, 06/13/2021 Clinical Data: aspiration pneumonia Comparison: Portable chest, 06/10/2021. Findings: Bilateral patchy opacities have developed in both lungs which may represent pulmonary edema and worsening pneumonia. Heart is at the upper limits of normal. The aortic arch shows calcification and tortuosity. No pneumothorax is seen. XR/XR chest 1V portable [id number] Impression: 1. Bilateral patchy opacities which probably represent a combination of pulmona ry vascular congestion and bilateral pneumonia. 2. Atherosclerosis and cardiomegaly.
[2021-06-13] MEDS: sodium chloride 0.9% 500 ML 999 ML IV (12:04)
--- NOTE | 2021-06-13 14:06 | PC.SOCIAL ---
IMM update IMM not updated as patient isn't A&O and unable to reach family after multiple attempts.
--- NOTE | 2021-06-13 14:28 | PM.PN ---
Subjective Subjective: Interval history: This morning patient was confused, she had right-sided gaze preference, CT head on stat basis was requested which was unremarkable Her oxygen requirement increased to 4 L, OxiMax ABG unremarkable Blood gas normal Patient was not able to communicate at all, she was able to make eye contact and move her right arm, no movement seen on left arm, Last well-known time unknown as per the nursing staff She has waxing and waning confusion Around 2 PM she started responding more, she told her name to the nurse I did update her son who is in [place] Did try to get in touch with DPOA, no voicemail set up I did call son again to let the DPOA know that Ms. Poole is getting worse Chest x-ray does show worsening pneumonia, worsening leukocytosis, antibiotics escalated today Requested nurse to keep Castellano catheter in for now Prolactin 13.3 Gave her 500 mL bolus, and placement of Castellano catheter only 15 mL came out Vitals/I&O/Wt Last Vital Signs Temp 99.6 F 06/13/21 12:00 Pulse 124 H 06/13/21 12:00 Resp 36 H 06/13/21 12:00 BP 127/78 06/13/21 12:00 Pulse Ox 94 06/13/21 13:37 06/12/21 06/13/21 06/13/21 22:59 06:59 14:59 Intake Total 255 / 1275 70 / 1345 600 / 600 Balance 255 / 1275 70 / 1345 600 / 600 Weight last 48 hrs Weight 33.158 kg Weight 35.017 kg Physical Exam Narrative: EXAM NARRATIVE: elderly female Cachectic, malnourished, dehydrated Right gaze preference Moving right arm, no movement seen on left arm, Not able to follow commands, contractures of lower extremity She does make eye contact when I asked her name Bilateral breath sounds are rhonchorous, chest congestion Soft abdomen S1, S2, sinus no murmur appreciated Urinary Catheter Management^: Castellano: Cath Placed During This Visit: yes Urinary Catheter Date of Insertion: 06/13/21 Urinary Catheter Time of Insertion: 12:00 Data : 06/13/21 05:19 06/13/21 05:19 Micro: Microbiology 06/10/21 23:00 Urine Culture - Final Urine,Clean Catch A&P Assessment and plan (1) Acute respiratory failure with hypoxia: Status: Acute (2) Pneumonia: Status: Acute Qualifiers: Laterality: left Lung location: lower lobe of lung Pneumonia type: due to unspecified organism Qualified Code(s): J18.9 - Pneumonia, unspecified organism (3) Pleural effusion: Status: Acute (4) Generalized anxiety disorder: Status: Acute (5) Acute delirium: Status: Acute (6) Aspiration pneumonia: Status: Acute Additional A&P Information Acute hypoxia Secondary to aspiration pneumonia with underlying vascular congestion Clinically dehydrated Fluid trial today Requiring 4 L oxygen mask Covid PCR negative Worsening leukocytosis, escalated antibiotic Acute delirium Likely related to worsening pneumonia Castellano catheter to be placed in requested UA Prolactin unremarkable CT head unremarkable She started responding to the nurse around 2 PM however she was nonverbal this morning with right gaze preference Stroke has not been ruled out yet Dysphagia Currently on dysphagia diet, Possible CVA Might consider MRI for diagnostic purposes We will discuss with the family oJse ghada With RVR Cannot take p.o. 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
[2021-06-13 16:28] LABS: Procalcitonin 0.85 ng/mL (0-0.5)
[2021-06-13] MEDS: FUROsemide 10 mg/mL SDV 2mL 20 MG IVP (18:16)
[2021-06-13] MEDS: acetaminophen 1,000 MG/100 ML PIGGYBACK 400 MG IV (23:29)
[2021-06-14 03:59] VITALS: BP 127/81; PULSE 117; RESP 32; TEMP 36.8; O2SAT 95
[2021-06-14 05:39] LABS: Basophils # 0.1 10^3/uL (0.0-0.1); Basophils % 0.5 %; Hematocrit 29.5 % (37.0-47.0); Hemoglobin 8.5 g/dL (11.5-15.3); Lymphocytes # 1.5 10^3/uL (0.8-4.8); Lymphocytes % 7.5 %; Mean Corpuscular HGB Conc 28.8 g/dL (30.0-36.0); Mean Corpuscular Hemoglobin 29.6 pg (28.0-34.0); Mean Corpuscular Volume 102.8 fl (81-99); Mean Platelet Volume 10.1 fL (7.4-10.4); Monocytes # 1.9 10^3/uL (0.2-0.9); Monocytes % 9.5 %; Neutrophils # 15.63 10^3/uL (1.8-7.7); Neutrophils % 79.8 %; Nucleated Red Blood Cells % 0 %; Platelet Count 495 10^3/cmm (130-400); Red Blood Count 2.87 10^6/uL (4.1-5.3); White Blood Count 19.6 10^3/uL (4.0-10.0)
[2021-06-14 06:14] LABS: Anion Gap 20.3 (5-19); Blood Urea Nitrogen 38 mg/dL (8-23); Calcium 8.4 mg/dL (8.5-10.5); Carbon Dioxide 20 mmol/L (22-29); Chloride 113 mmol/L (98-107); Glucose 113 mg/dL (65-115); Osmolality Calculated 320 mOsm/kg (285-295); Potassium 3.3 mmol/L (3.5-5.1); Sodium 150 mmol/L (136-145)
[2021-06-14 07:47] VITALS: BP 135/80; PULSE 120; RESP 17; TEMP 36.9; O2SAT 96
[2021-06-14] MEDS: pantoprazole DR 40 mg Tablet PO (09:33)
[2021-06-14] MEDS: metroNIDAZOLE 500 MG Tablet PO (09:33)
[2021-06-14] MEDS: escitalopram 10 mg Tablet 5 MG PO (09:33)
[2021-06-14] MEDS: metoprolol succinate ER (24 HR) 50 mg Tablet PO (09:45)
[2021-06-14 10:26] VITALS: O2SAT 93
[2021-06-14 11:41] VITALS: BP 141/80; PULSE 118; RESP 17; TEMP 37.1; O2SAT 94
[2021-06-14] MEDS: aztreonam 2,000 MG in sodium chloride 0.9% (plus) 100 ML 200 MG IV ×2 (11:45→21:00)
[2021-06-14] MEDS: dextrose 5% 1,000 ML 75 ML IV (13:25)
--- NOTE | 2021-06-14 14:59 | PM.PN ---
Subjective Subjective: Interval history: Patient was seen and examined this morning, she is making eye contact, able to tell us her name, serial dysphagia, she was getting speech evaluation Clinically dehydrated Sodium 150 Afebrile Requiring 10 L via oxygen mask Oliguric A. fib RVR given Cardizem 5 mg IV push Vitals/I&O/Wt Last Vital Signs Temp 98.8 F 06/14/21 11:41 Pulse 118 H 06/14/21 11:41 Resp 17 06/14/21 11:41 BP 141/80 06/14/21 11:41 Pulse Ox 94 06/14/21 11:41 06/13/21 06/14/21 06/14/21 22:59 06:59 14:59 Intake Total 752.5 / 1352.5 100 / 1452.5 Output Total 200 / 200 Balance 752.5 / 1352.5 -100 / 1252.5 Weight last 48 hrs Weight 33.158 kg Physical Exam Narrative: EXAM NARRATIVE: When I entered the room, patient did make eye contact Dehydrated Malnourished Upper airway sounds improved since yesterday Requiring oxygen mask 10 L Bilateral breath sounds with rhonchi and crackles Abdomen soft, flat Lower extremity no edema Severe dysphagia Not able to communicate Castellano catheter concentrated urine Urinary Catheter Management^: Castellano: Cath Placed During This Visit: yes Reason for Continuing Indwelling Catheter: Accurate Measurement of Urinary Output in Critically Ill Patients Urinary Catheter Date of Insertion: 06/13/21 Urinary Catheter Time of Insertion: 12:00 Data : 06/14/21 03:19 06/14/21 03:19 A&P Assessment and plan (1) Aspiration pneumonia: Status: Acute (2) Acute delirium: Status: Acute (3) Acute respiratory failure with hypoxia: Status: Acute (4) Diarrhea: Status: Acute (5) Pneumonia: Status: Acute Qualifiers: Laterality: left Lung location: lower lobe of lung Pneumonia type: due to unspecified organism Qualified Code(s): J18.9 - Pneumonia, unspecified organism (6) Pleural effusion: Status: Acute (7) Dysphagia: Status: Acute Additional A&P Information Severe dysphagia most likely related to CVA Patient is only using her right hand, No facial droop Patient is confused MRI would not add any merit to active treatment On dysphagia diet Acute hypoxic respiratory failure related to aspiration pneumonia Vascular congestion evident on chest x-ray as well She was given Lasix yesterday, inadequate urine output She is getting dehydrated sodium 150, we will keep her on D5 today and monitor urine output Covid PCR negative 10 L oxygen mask, clinically dehydrated, mild acidosis A. fib RVR cannot take p.o. medications anymore, Cardizem IV push 5 mg given today Delirium related to worsening pneumonia Patient deteriorates further and she is not able to eat, son is leaning towards palliative care Dysphagia diet DNR/DNI Attestations Medical Necessity Statement*: Guarded prognosis, continue medical management Time Spent in Patient Care: less than 15 minutes Coding Level of Care Code Acute [employer] for [facility] Fwd Diagnoses Aspiration pneumonia J69.0 Acute delirium R41.0 Acute respiratory failure with hypoxia J96.01 Diarrhea R19.7 Pneumonia J18.9 Laterality: left Lung location: lower lobe of lung Pneumonia type: due to unspecified organism Pleural effusion J90 Dysphagia R13.10
[2021-06-14 15:51] VITALS: BP 149/71; PULSE 115; RESP 19; TEMP 37.1; O2SAT 91
--- NOTE | 2021-06-14 18:19 | PC.NURSE ---
rn attempted to give pt crushed meds in pudding, pt isnt moving her tongue to facilitate swallowing. notified. will cont to monitor.
[2021-06-14 20:00] VITALS: BP 153/71; PULSE 119; RESP 19; TEMP 37.4; O2SAT 93
[2021-06-15] VITALS (8 sets, daily range): BP systolic 119–167; BP diastolic 63–101; PULSE 0–138; RESP 0–45; TEMP 36.3–37.3; O2SAT 90–94
[2021-06-15] MEDS: dextrose 5% 1,000 ML 75 ML IV ×2 (05:02→14:32)
[2021-06-15 05:48] LABS: Basophils # 0.1 10^3/uL (0.0-0.1); Basophils % 0.3 %; Hematocrit 27.1 % (37.0-47.0); Hemoglobin 8.5 g/dL (11.5-15.3); Lymphocytes # 1.7 10^3/uL (0.8-4.8); Lymphocytes % 7.2 %; Mean Corpuscular HGB Conc 31.4 g/dL (30.0-36.0); Mean Corpuscular Hemoglobin 30.2 pg (28.0-34.0); Mean Corpuscular Volume 96.4 fl (81-99); Mean Platelet Volume 9.9 fL (7.4-10.4); Monocytes # 1.8 10^3/uL (0.2-0.9); Monocytes % 7.7 %; Neutrophils % 82.7 %; Nucleated Red Blood Cells % 0.1 %; Platelet Count 469 10^3/cmm (130-400); Red Blood Count 2.81 10^6/uL (4.1-5.3); White Blood Count 23.5 10^3/uL (4.0-10.0)
[2021-06-15 06:33] LABS: Anion Gap 19.6 (5-19); Blood Urea Nitrogen 48 mg/dL (8-23); Calcium 8.2 mg/dL (8.5-10.5); Carbon Dioxide 18 mmol/L (22-29); Chloride 115 mmol/L (98-107); Glucose 148 mg/dL (65-115); Osmolality Calculated 325 mOsm/kg (285-295); Sodium 150 mmol/L (136-145)
[2021-06-15 06:43] LABS: Potassium 2.6 mmol/L (3.5-5.1)
--- NOTE | 2021-06-15 09:54 | PC.NURSE ---
THIS NURSE IS FAMILIAR WITH THIS PT. I TOOK CARE OF THIS PT WEDNESDAY AND WEDNESDAY. UPON MY ASSESSMENT THIS MORNING OF THIS PT, AT APPROXIMATELY 0730, PT WAS SIMILAR TO HOW SHE WAS WHEN I LEFT WEDNESDAY. SHE WONT TALK BUT HER EYES WOULD OPEN TO ME TALKING TO HER. SHE FLEXED TO PAIN. THIS NURSE NOTICED SOME MUCOUS ON THE PTS LIP AND INSIDE THE MOUTH SO THIS NURSE SUCTIONED HER. PT APPEARED TO BE DOING BETTER AFTER THIS. OXYGEN INCREASED TO 96%. THIS NURSE WAS IN PTS ROOM FOR APPROXIMATELY 30 MIN. THIS NURSE LEFT TO ASSESS OTHER PTS. WHILE IN WITH ANOTHER PT, THE CHARGE NURSE NOTICED THE PT'S HEART RATE HAD JUMPED INTO THE 150S AND NOTIFIED ME OF THIS AT 0943. THIS NURSE WENT IN TO CHECK ON PT, APPROXIMATELY 0950 AT THIS TIME. PT DOES NOT LOOK GOOD TO THIS NURSE. I WENT AND GOT THE CHARGE NURSE AND SHE CAME AND LOOKED AT PT. SHE AGREED PT DOES NOT LOOK WELL AT ALL, SHE IS WORSE THEN BEFORE. DR. GÓMEZ NOTIFIED OF THE FINDINGS AND ASKED TO COME LOOK AT PT. PT WILL NOT OPEN EYES NOW AND SHE DOES NOT RESPOND TO PAINFUL STIMULI. CURRENT VITALS ARE B/P 122/73. HR OF 139. OXYGEN 92% ON 10L OXY MASK. TEMP 99.2. RESPIRATIONS OF 40/MIN. WAITING ON DOCTOR TO COME. THIS NURSE IS AT BEDSIDE WITH PT.
--- NOTE | 2021-06-15 12:00 | P.PN_ITS ---
Subjective Subjective: Interval history: Patient is nonverbal, she is keeping her eyes closed, Hyperkalemia, A. fib RVR Upper airway secretions suctioned by the nursing staff today Currently requiring 11 L FiO2, oxygen mask Did talk with her son to update him regarding active status, [place] right now, they are planning to come over, leaning towards comfort care, son requested if comfort measure orders be started after family has visited Ms. Poole Vitals/I&O/Wt Last Vital Signs Temp 99.2 F 06/15/21 08:00 Pulse 119 H 06/15/21 08:00 Resp 36 H 06/15/21 08:00 BP 119/63 06/15/21 08:00 Pulse Ox 94 06/15/21 08:00 06/14/21 06/15/21 06/15/21 22:59 06:59 14:59 Intake Total 100 / 200 1000 / 1200 Output Total 175 / 175 Balance 100 / 200 825 / 1025 Physical Exam Narrative: EXAM NARRATIVE: Patient is keeping her eyes closed, Tachypnea, A. fib RVR Not responding to painful stimuli Obtunded Blood pressure 119/63 On 11 L oxygen mask Crackles and rhonchi bilateral Soft abdomen Contracture of extremities Urinary Catheter Management^: Castellano: Cath Placed During This Visit: yes Reason for Continuing Indwelling Catheter: Other Urinary Catheter Date of Insertion: 06/13/21 Urinary Catheter Time of Insertion: 12:00 Data : 06/15/21 05:15 06/15/21 05:15 A&P Assessment and plan (1) Dysphagia: Status: Acute (2) Aspiration pneumonia: Status: Acute (3) Acute delirium: Status: Acute (4) Acute respiratory failure with hypoxia: Status: Acute (5) Pneumonia: Status: Acute Qualifiers: Laterality: left Lung location: lower lobe of lung Pneumonia type: due to unspecified organism Qualified Code(s): J18.9 - Pneumonia, unspecified organism Additional A&P Information DPOA and son leaning toward comfort measures Son requested if comfort measure order be started after family has visited her today Attestations Medical Necessity Statement*: Comfort measures Time Spent in Patient Care: less than 15 minutes Coding Level of Care Code 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
--- NOTE | 2021-06-15 13:04 | PC.SOCIAL ---
IMM Updated IMM. Copy provided to family & left at bedside. Pt is now on comfort measures.
[2021-06-15] MEDS: morphine 4 mg/mL SDV 1 mL 2 MG IVP (15:53)
[2021-06-15] MEDS: morphine 4 mg/mL SDV 1 mL IVP ×3 (17:14→18:30)
[2021-06-15] MEDS: LORazepam 2 mg/mL INJ 1 mL IVP ×2 (17:14→18:30)
--- NOTE | 2021-06-15 18:10 | PC.NURSE ---
PTS FAMILY ALL HERE. THEY HAVE BEEN HERE SINCE AROUND 1630. DR. GÓMEZ CAME UP AND TALKED TO FAMILY. FAMILY ALL AGREEABLY TO MOVE FORWARD WITH COMFORT CARE MEASURERS. PT IS RESTING IN BED PEACEFULLY. ATIVAN AND MORPHINE WERE GIVEN TO THE PT AT APPROXIMATELY 1715. THE OXYGEN WAS THEN TAKEN OFF OF THE PT PER FAMILY REQUEST AFTER ADMINISTERING PRN MEDICATIONS. THIS NURSE WILL CONTINUE TO GIVE MEDICATIONS ORDERED AND PER FAMILY REQUEST TO KEEP THE PT COMFORTABLE. WILL CONTINUE TO MONITOR.
--- NOTE | 2021-06-15 19:07 | PM.DDS ---
Discharge Providers DDS Date of Admission: 06/10/21 21:02 Date Summary Completed: 06/15/21 Attending Provider at Admission: Lashay Mora MD Time of : 18:57 Attending Provider at Discharge: Radha Corrigan MD Primary Care Provider: Deborah PARKRE Diagnoses Hospital Diagnoses (1) Dysphagia: (2) Aspiration pneumonia: (3) Acute delirium: (4) Acute respiratory failure with hypoxia: (5) Pneumonia: Qualifiers: Laterality: left Lung location: lower lobe of lung Pneumonia type: due to unspecified organism Qualified Code(s): J18.9 - Pneumonia, unspecified organism Reason for Visit Reason for Visit: POSSIBLE UTI/ SOB Summary Date and Time of Date of : 06/15/21 Time of : 18:57 Summary Summary: Patient was admitted for management of UTI and acute hypoxic respiratory failure. Covid PCR negative. She had left arm weakness, dysphagia most likely to recent CVA event. CT head, CTA head and neck unremarkable however MRI was not pursued. Her mentation of waxing and waning. With worsening of her aspiration and vascular congestion she deteriorated. Her oxygen requirement was worsening, she was put on 11 L oxygen mask. X-ray showed worsening of her aspiration pneumonia with worsening infiltrate bilaterally right greater than left. She was diuresed, put on IV antibiotics. She became extremely dehydrated as she was not able to eat or drink because of dysphagia. D5 was initiated for correction of hypernatremia. She was DNR/DNI at the time of admission. Because no worsening hypoxia, infiltrate, dehydration, A. fib RVR, DPOA started to initiate comfort measures on 06/15. Patient at 1857. Family at the bedside. Family was updated from day 1. All questions were answered to their satisfaction, Cause of aspiration pneumonia Comorbid conditions: Dysphagia Dehydration Hypernatremia Additional Data Confirmation of as documented by pronouncing clinician: no respirations Family: at bedside Additional persons at bedside: nursing staff Attending/PCP notified?: I am attending Was code activated?: No Autopsy requested?: No Advance directives?: No Hospice patient?: Yes Discharge Plan Discharge Patient Disposition: Home Condition: Stable Prescriptions: Continued albuterol sulfate 2.5 mg /3 mL (0.083 %) solution for nebulization 2.5 mg inhalation Q4H PRN (Reason: Wheezing) RF: 0 amlodipine 5 mg tablet 5 mg PO DAILY@08 RF: 0 atorvastatin 40 mg Tablet 40 mg PO DAILY@19 RF: 0 famotidine 20 mg tablet 20 mg PO BID RF: 0 hydrochlorothiazide 12.5 mg Capsule 12.5 mg PO DAILY@08 RF: 0 escitalopram oxalate [Lexapro] 5 mg Tablet 5 mg PO DAILY@08 RF: 0 melatonin 5 mg Tablet 5 mg PO DAILY@19 RF: 0 metoprolol tartrate 50 mg tablet 50 mg PO BID RF: 0 magnesium hydroxide [Milk of Magnesia] 400 mg/5 mL Suspension 30 ml PO DAILY PRN (Reason: Constipation) RF: 0 polyethylene glycol 3350 [Miralax] 17 gram/dose Powder 17 g PO DAILY@08 RF: 0 potassium chloride 20 mEq/15 mL liquid 30 meq PO DAILY RF: 0 multivitamin,tx-minerals Tablet 1 tab PO DAILY@08 RF: 0 Xarelto 20 mg tablet 20 mg PO DAILY RF: 0 docusate sodium 50 mg/5 mL Liquid 100 mg PO BID RF: 0 Senna-S 8.6-50 mg Tablet 1 tab-cap PO DAILY PRN (Reason: Constipation) RF: 0 acetaminophen 500 mg Tablet 1,000 mg PO TID RF: 0 magnesium oxide 400 mg (241.3 mg magnesium) Tablet 400 mg PO DAILY@08 RF: 0 oxycodone 5 mg tablet 7.5 mg PO Q4H PRN (Reason: Pain) RF: 0 mirtazapine 30 mg tablet 30 mg PO DAILY@19 RF: 0 Discharge Orders: Discharge Order (Routine); Ordered 06/15/21 Ordered By: Elena Jorgensen Referrals: Deborah Jung [Primary Care Provider] - Patient Instructions: Opioid Safety DS Attestations Time Spent in /Discharge Care*: less than 30 min Quality - AMI: AMI present?: No Quality - Stroke: CVA present?: Yes Quality - VTE: VTE present?: No Deep Vein Thrombosis/Pulmonary Embolism Present on Admission: No Coding Level of Care Code 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
--- NOTE | 2021-06-15 19:37 | PC.NURSE ---
PT AT 1856. THIS NURSE WELL AFFILIATE MANAGER NURSE MAMI COTTON RN VERIFIED TOD 1856. EACH NURSE LISTENED TO PT FOR FULL MINUTE. FAMILY GIVEN THE TIME THEY NEEDED. AFTER THIS, HOME FOR PT WAS OBTAINED AND FORM WAS SIGNED BY PT'S SON ROBERT. SHELBY AND CASTAÑEDA REMOVED BY THIS NURSE. REPORT GIVEN TO AFFILIATE MANAGER NURSE, MAMI, WELL CHARGE NURSE BETTY FINN. WAITING ON MACHINED PARTS QUALITY INSPECTOR TO GET BODY BAG, OTHERWISE POST MORTEM CARE PERFORMED BY THIS NURSE.
--- NOTE | 2021-06-15 19:47 | PC.NURSE ---
MTS Pt is released from [facility] due to weight. Pt is candidate for Saving Site.
--- NOTE | 2021-06-15 23:12 | PC.NURSE ---
The patient's body was released to [facility] from [place] at 2226
== END 2021-06-15 22:26 | disposition expired | DRG 189 ==
LOC: ER 19:51 → MEDSURG 21:03
PROVIDERS: Internal Medicine; Admitting Provider Student in an Organized Health Care Education/Training Program; Emergency Provider Emergency Medicine; PCP Registered Nurse; Visit Provider Internal Medicine
DX: J96.01 Acute respiratory failure with hypoxia (principal); J69.0 Pneumonitis due to inhalation of food and vomit; E87.0 Hyperosmolality and hypernatremia; I69.354 Hemiplegia and hemiparesis following cerebral infarction affecting left non-dominant side; N39.0 Urinary tract infection, site not specified; J90 Pleural effusion, not elsewhere classified; E87.2 Acidosis; E86.0 Dehydration; I69.391 Dysphagia following cerebral infarction; R13.10 Dysphagia, unspecified; E87.6 Hypokalemia; I48.91 Unspecified atrial fibrillation; R41.0 Disorientation, unspecified; F41.1 Generalized anxiety disorder; I10 Essential (primary) hypertension; F51.01 Primary insomnia; R19.7 Diarrhea, unspecified; E78.5 Hyperlipidemia, unspecified; Z66 Do not resuscitate; Z51.5 Encounter for palliative care; Z79.01 Long term (current) use of anticoagulants; Z22.322 Carrier or suspected carrier of Methicillin resistant Staphylococcus aureus; Z87.81 Personal history of (healed) traumatic fracture
CPT/HCPCS: 36415; 36416; 36600; 51702; 70450; 71045; 71275; 80048; 80053; 81001; 82803; 82962; 83605; 83880; 84145; 84146; 85007; 85025; 85378; 87040; 87086; 87426; 87635; 87641; 87804; 92526; 92610; 93005; 93306; 94664; 96365; 96367; 99285; J0456; J0696; J1940; J2060; J2270; J3480; J3490; J7030; J7040; J7050; Q0144; Q9967